=== PATIENT | male | born 1995 | race Caucasian/White ===

== ENCOUNTER 2016-09-23 20:39 | Emergency (ER) | payer OTHER ==
[~2016-09-23] VITALS: Ht 177.8 cm; Wt 75.0 kg
[~2016-09-23 20:39] MED LIST: OSEL75 PO; ZOFR4TAB3 SL
[2016-09-23 20:40] VITALS: BP 142/92; PULSE 83; RESP 16; TEMP 98.5; O2SAT 96
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
[2016-09-23] MEDS ORDERED: BACT800T5 PO (22:30)
[2016-09-23] MEDS ORDERED: IBUP800T23 PO (22:30)
== END 2016-09-23 23:12 | disposition home or self-care (01) ==
LOC: NEPB 20:39
DX: L03.113 Cellulitis of right upper limb (principal); S09.90XA Unspecified injury of head, initial encounter; S80.01XA Contusion of right knee, initial encounter; V18.0XXA Pedal cycle driver injured in noncollision transport accident in nontraffic accident, initial encounter; Y93.55 Activity, bike riding; Y92.89 Other specified places as the place of occurrence of the external cause; Y99.8 Other external cause status
CPT/HCPCS: 29125; 70450; 73130; 73564